=== PATIENT | female | born 2000 | race Caucasian/White ===

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

== ENCOUNTER → 2024-07-30 | Outpatient (CLI) | payer OTHER, SELFPAY ==
--- NOTE | 2024-07-30 10:18 | RAD_ITS ---
PROCEDURE: ESOPHAGUS DUAL CONTRAST REASON FOR EXAM: R-CPD syndrome evaluation. TECHNIQUE: Following the ingestion of effervescent granules and high density barium the swallowing mechanism was evaluated under fluoroscopic guidance. Routine documentation of fluoroscopic images was performed. FLUOROSCOPIC TIME: 51 seconds. DOSE: 4.0 mGy. FLUOROGRAPHIC IMAGES: 5 sequences. COMPARISON: None. FINDINGS: No abnormalities were observed in the hypopharynx. No constricting or obstructing lesions are identified. No ulcerations. Contractility was normal. No hiatal hernia. No other abnormalities are demonstrated. Visualized stomach unremarkable. RAD/Esophagus Dual Contrast IMPRESSION: 1. Normal double contrast esophagram. 2. Consider video esophagram with the speech pathologist for further evaluatio n of the oropharynx and hypopharynx if clinically indicated. Reading Location: [place] [id number]
== END | disposition home or self-care (01) ==
LOC: RAD 09:39
PROVIDERS: Referring Provider Otolaryngology; Visit Provider Otolaryngology
DX: R13.10 Dysphagia, unspecified (principal)
CPT/HCPCS: 74221